=== PATIENT | female | born 1960 | race Caucasian/White ===

== ENCOUNTER 2022-02-15 09:16 | Outpatient (CLI) | payer OTHER, SELFPAY | END 2022-02-15 09:17 | disposition home or self-care (01) | LOC: RAD 09:18 → INJ CL 09:23 | PROVIDERS: PCP Physician Assistant Medical; Visit Provider Family Medicine | DX: M54.16 Radiculopathy, lumbar region (principal); M51.26 Other intervertebral disc displacement, lumbar region | CPT/HCPCS: 62323; Q9966 ==

== ENCOUNTER 2022-06-19 11:23 | Outpatient (CLI) | payer OTHER, SELFPAY ==
[2022-06-19] MEDS: TETRACAINE 0.5% OPHTH 1 DROP EYE-BOTH ×3 (11:32→12:04)
[2022-06-19] MEDS: BRIMONIDINE TARTRATE 0.2% OPHTH 1 DROP EYE-BOTH ×2 (11:32→12:20)
[2022-06-19 11:36] VITALS: BP 137/84; PULSE 57; RESP 16; TEMP 35.9; O2SAT 95
--- NOTE | 2022-06-19 13:45 | W.PM.OPTPROC ---
Procedure Note Date of procedure: 06/19/22 Will [facility] bill your pro fee for this procedure?: Yes Procedure Description: SURGEON: Camila Guthrie MD PREOPERATIVE DIAGNOSIS: Posterior capsular opacity, right and left eye POSTOPERATIVE DIAGNOSIS: Posterior capsular opacity, right and left eye PROCEDURE: YAG laser capsulotomy, both eyes ANESTHESIA: Topical. ESTIMATED BLOOD LOSS: None PATHOLOGY SPECIMEN: None COMPLICATIONS: None INDICATIONS: See consult note for details. The risks, benefits and alternatives of the procedure were explained to the patient, who elected to proceed and signed informed consent to do so. PROCEDURE: The patient was brought to the pre-holding area where the right and left eyes were identified as the operative eyes. I placed my initials above the eyes. The following was given in both eyes: The patient received 2 sets of 1 drop of 0.5% tetracaine and 1 drop of 1% tropicamide. They also received 1 drop of 0.2% brimonidine. They received 1 drop of 0.5% tetracaine immediately prior to bringing them back for the procedure. The patient was then brought to the procedure room where the right and left eyes were again identified as the operative eyes. A YAG Ihsan capsulotomy lens was placed on the right eye. The laser was administered using a total number of 17 shots with an energy of 2.4 mJ per shot for a total energy of 41 mJ. The patient tolerated the procedure well. A YAG Ihsan capsulotomy lens was placed on the left eye. The laser was administered using a total number of 45 shots with an energy of 2.4 mJ per shot for a total energy of 108 mJ. The patient tolerated the procedure well. DISPOSITION: The patient was taken back to the pre-holding area and given 1 drop of 0.2% brimonidine in both eyes. They were discharged to home in stable condition. The patient was instructed to call me or go to the emergency department with any sudden change, including dramatic loss of vision, severe pain in the eye or eyebrow region, nausea, or vomiting. The patient was instructed to use the 0.2% brimonidine 1 drop 2 times a day in both eyes for 1 week. The patient will follow up in the clinic in 1-2 weeks.
== END 2022-06-19 12:22 | disposition home or self-care (01) ==
LOC: EYE PRC 11:25
PROVIDERS: PCP Physician Assistant Medical; Visit Provider Ophthalmology
DX: H26.9 Unspecified cataract (principal)
CPT/HCPCS: 66821; A9270

== ENCOUNTER 2023-01-21 08:19 | Outpatient (CLI) | payer OTHER, SELFPAY | END 2023-01-21 08:20 | disposition home or self-care (01) | LOC: INJ CL 08:20 | PROVIDERS: PCP Physician Assistant Medical; Visit Provider Family Medicine | DX: M51.36 Other intervertebral disc degeneration, lumbar region (principal); M54.16 Radiculopathy, lumbar region | CPT/HCPCS: 62323; J0702; Q9966 ==

== ENCOUNTER 2023-08-06 14:12 | Emergency (ER) | payer OTHER, SELFPAY ==
[2023-08-06] VITALS (10 sets, daily range): BP systolic 129–141; BP diastolic 69–84; PULSE 49–61; RESP 16–20; TEMP 36.5; O2SAT 94–98; BMI 29.1
--- NOTE | 2023-08-06 14:24 | CRLHL7_ITS ---
For Patients: As a result of the Century Cures Act, medical imaging exams and procedure reports are released immediately into your electronic medical record. You may view this report before your referring provider. If you have questions, please contact your health care provider. Indication: Chest pain. Technique: One view(s) of the chest. Comparison: None available. Findings: Normal cardiomediastinal silhouette and pulmonary vasculature. Lungs are well inflated and clear. No focal consolidation, pleural effusion or pneumothorax. No acute osseous abnormality. Impression: No acute cardiopulmonary abnormality identified. Dictated by Nellie Gallegos MD @ 08/06/2023 2:49:18 PM (Electronically Signed)
--- NOTE | 2023-08-06 14:28 | ED_ITS ---
HPI - General Adult General Chief complaint: Chest Pain Stated complaint: Chest pain Time Seen by Provider: 08/06/23 14:14 History of Present Illness HPI narrative: The patient is a 63 year white female who was arguing with her this morning and had significant left-sided chest pain. She reported shortness of breath diaphoresis she felt panicky. She has had a history of lorazepam use for panic attacks in the past. She has not had any heart history although she does have chronic atrial fibrillation and she is on Coumadin. She has not had any myocardial infarctions or obstructive disease. She took a lorazepam this morning after she felt panicky, and it seemed to help, although she still has a little ?stitch in her left upper chest that she points to with a single finger. She has not had any shortness of breath now no breathing problem no diaphoresis no nausea. She has had no leg swelling or edema history of bleeding or clotting problems. She is on Coumadin as mentioned. She had a history of breast cancer. That was remote. She is nondiabetic, does not smoke. Her mother had open- heart surgery for what sounds like a valvular issue. Related Data Allergies Allergy/AdvReac Type Severity Reaction Status Date / Time No Known Allergies Allergy Verified 08/06/23 14:30 Review of Systems Status of ROS: Reports: 6 or more systems reviewed and unremarkable except as noted in History and below [facility] Medical History Migraine ?G43.909 - Migraine, unspecified, not intractable, without status migrainosus (ICD-10) Depression ?F32.A - Depression, unspecified (ICD-10) Anxiety ?F41.9 - Anxiety disorder, unspecified (ICD-10) Hypothyroidism ?E03.9 - Hypothyroidism, unspecified (ICD-10) Hypertension ?I10 - Essential (primary) hypertension (ICD-10) Atrial fibrillation ?I48.91 - Unspecified atrial fibrillation (ICD-10) Social History Smoking Status: Never smoker Do you use any of these nicotine containing products: None Second hand tobacco smoke exposure: No How often do you have a drink containing alcohol: never AUDIT-C Alcohol total score: 0 Non-prescribed substance use: denies use service: No Exam Narrative: Exam Narrative: Objective: The patient's heart rate is in the normal range of 80-90, O2 sat is normal Alert orient x3 no distress Neck is supple Chest clear Heart rhythm irregular regular 2/6 systolic ejection murmur Abdomen benign soft nontender no masses no peritonitis Extremities are no edema Neurologic nonfocal good peripheral perfusion noted, skin periphery is warm and dry. Const: Vital Signs, click to edit/add: Vital Signs - 24 hr 08/06/23 14:22 08/06/23 14:23 08/06/23 14:23 Temperature Pulse Rate 49 L 60 Pulse Rate [Bilate ral] Respiratory Rate Blood Pressure 140/84 H Blood Pressure [Ri ght Upper Arm] Pulse Oximetry 97 98 97 Oxygen Delivery Me thod 08/06/23 14:27 08/06/23 14:44 08/06/23 14:49 Temperature 97.7 F Pulse Rate 57 L Pulse Rate [Bilate ral] 61 Respiratory Rate 20 Blood Pressure 141/69 H Blood Pressure [Ri ght Upper Arm] 140/84 H Pulse Oximetry 97 96 Oxygen Delivery Me thod Room Air 08/06/23 15:00 08/06/23 15:03 08/06/23 15:04 Temperature Pulse Rate 56 L 55 L 56 L Pulse Rate [Bilate ral] Respiratory Rate 16 Blood Pressure 140/82 H Blood Pressure [Ri ght Upper Arm] Pulse Oximetry 96 94 94 Oxygen Delivery Me thod 08/06/23 15:14 08/06/23 15:15 Temperature Pulse Rate 56 L 56 L Pulse Rate [Bilate ral] Respiratory Rate 16 Blood Pressure 129/82 Blood Pressure [Ri ght Upper Arm] Pulse Oximetry 97 97 Oxygen Delivery Me thod Course Vital Signs Vital signs: Initial Vital Signs Pulse Rate 49 L 08/06/23 14:22 Blood Pressure 140/84 H 08/06/23 14:22 Blood Pressure Mean 102 08/06/23 14:22 Pulse Oximetry 97 08/06/23 14:22 Vital Signs Pulse Rate 49 L 08/06/23 14:22 Blood Pressure 140/84 H 08/06/23 14:22 Pulse Oximetry 97 08/06/23 14:22 Temperature 97.7 F 08/06/23 14:27 Pulse Rate 56 L 08/06/23 15:15 Respiratory Rate 16 08/06/23 15:14 Blood Pressure 129/82 08/06/23 15:14 Pulse Oximetry 97 08/06/23 15:15 Oxygen Delivery Method Room Air 08/06/23 14:27 Medications Administered Medications: Discontinued Medications Generic Name Dose Route Start Last Admin Trade Name Jewell PRN Reason Stop Dose Admin Aspirin 324 mg 08/06/23 14:23 08/06/23 14:44 Aspirin 81 Mg Tab.Chew PO 08/06/23 14:24 324 mg ONCE ONE Administration Medical Decision Making MDM Narrative Medical decision making narrative: 63-year-old female with what sounds like a panic attack with left chest wall pain, markedly improved now with stress this morning. She had symptoms of a panic attack including diaphoresis, chest pain, shortness of breath, panic feeling. This has resolved with her Ativan. She still has a little bit a point discomfort in her left upper lateral chest. This does not sound cardiac. Sounds more chest wall in nature. I think it be important over to check cardiac rhythm, EKG, troponin, lab studies. Will give her aspirin 324 chewable. Check her INR. Patient's EKG was done in emergency department showed by my read sinus rhythm occasional PVC nonspecific ST changes but no obvious ischemic change. Patient's labs and chest x-ray pending. I do not think at this point she needs additional Ativan as she seems to be doing very well. Addendum 3:25 p.m.: Patient's chest x-ray by my read is unremarkable, her INR is 2, her labs look reassuring., troponin is negative. She be discharged to home. Ativan as needed. I suspect she had a panic type spell today. Recheck with regular doctor over the next week to 2 weeks. Return sooner problems concerns the ER. Lab Data Labs: Lab Results 08/06/23 08/06/23 Range/Units 14:24 14:36 WBC 7.33 (4.50-11.00) K/uL RBC 4.18 (4.00-5.20) m/uL Hgb 12.8 (12.0-16.0) gm/dL Hct 37.7 (33.0-51.0) % MCV 90 (80-100) fL MCH 31 (26-34) pg MCHC 34 (32-36) gm/dL RDW Coeff of Shantal 11.9 (11.5-15.5) % Plt Count 328 (140-440) K/uL Neut % (Auto) 65.0 (42.0-72.0) % Lymph % (Auto) 24.7 (20-44) % Labette % (Auto) 8.2 (0.0-11.0) % Eos % (Auto) 1.4 (0.0-7.0) % Baso % (Auto) 0.4 (0.0-3.0) % Neut # (Auto) 4.77 (1.7-7.0) K/uL Lymph # (Auto) 1.81 (0.90-2.90) K/uL Labette # (Auto) 0.60 (0.00-0.90) K/UL Eos # (Auto) 0.10 (0.00-0.50) K/uL Baso # (Auto) 0.03 (0.00-0.30) K/uL Abs Immat Gran (auto) 0.02 (0.00-0.30) K/uL Imm/Tot Granulo (auto) 0.3 % INR 1.99 H (0.91-1.10) Sodium 135 (135-149) mmol/L Potassium 3.5 L (3.6-5.1) mmol/L Chloride 103 (96-114) mmol/L Carbon Dioxide 24 (20-32) mmol/L Anion Gap 8 (7-15) mEq/L BUN 13 (7-30) mg/dL Creatinine 0.5 (0.5-1.5) mg/dL Estimated Creat Clear 52.49 Estimated GFR 106 ml/min Glucose 107 (60-115) mg/dL Calcium 9.4 (8.4-10.6) mg/dL Total Bilirubin 0.6 (0.1-1.5) mg/dL Direct Bilirubin 0.4 (0.0-0.5) mg/dL AST 29 (12-35) U/L ALT 21 (4-35) U/L Alkaline Phosphatase 71 (40-150) U/L C-Reactive Protein < 0.5 L (0.5-1.0) mg/dL Total Protein 7.4 (6.0-8.3) g/dL Albumin 4.6 (3.3-5.0) g/dL POC Troponin I 0.00 L (0.01-0.04) ng/ml Discharge Plan Discharge Clinical Impression: Chest pain, Panic attack Patient Disposition: Home w/ Parent or Adult Condition: Stable Additional Instructions: Recommend continue home medications, can use Ativan as needed, follow-up with primary care in the next few days if problems or concerns and probably good idea to get a recheck in the next week. Return to ED as needed. Activity Level: No Restrictions Discharge Diet: Regular Follow Up/Referrals: Jeanine Bartholomew PA-C [Primary Care Provider] - Stand Alone Forms: [employer] Info Instructions
[2023-08-06 14:40] LABS: Basophils Absolute Auto 0.03 K/uL (0.00-0.30); Basophils Percent Auto 0.4 % (0.0-3.0); Eosinophils Percent Auto 1.4 % (0.0-7.0); Hematocrit 37.7 % (33.0-51.0); Hemoglobin* 12.8 gm/dL (12.0-16.0); Immature Granulocytes Abs Auto 0.02 K/uL (0.00-0.30); Immature Granulocytes Pct Auto 0.3 %; Lymphocytes Absolute Auto 1.81 K/uL (0.90-2.90); Lymphocytes Percent Auto 24.7 % (20-44); Mean Corpuscular HGB Conc 34 gm/dL (32-36); Mean Corpuscular Hemoglobin 31 pg (26-34); Mean Corpuscular Volume 90 fL (80-100); Monocytes Percent Auto 8.2 % (0.0-11.0); Neutrophils Absolute Auto 4.77 K/uL (1.7-7.0); Platelet Count* 328 K/uL (140-440); RDW Coefficient of Variation % 11.9 % (11.5-15.5); Red Blood Count 4.18 m/uL (4.00-5.20); White Blood Count* 7.33 K/uL (4.50-11.00)
[2023-08-06 14:43] LABS: Slide Review Reflex No
[2023-08-06] MEDS: ASPIRIN 81 MG TAB.CHEW 324 MG PO (14:44)
[2023-08-06 14:53] LABS: Chloride* 103 mmol/L (96-114)
[2023-08-06 14:54] LABS: Albumin* 4.6 g/dL (3.3-5.0); Sodium* 135 mmol/L (135-149)
[2023-08-06 14:55] LABS: Potassium* 3.5 mmol/L (3.6-5.1)
[2023-08-06 14:56] LABS: Creatinine* 0.5 mg/dL (0.5-1.5); Est. Creatinine Clearance* 52.49; Estimated Glomerular Filt Rate 106 ml/min
[2023-08-06 14:57] LABS: Alanine Aminotransferase* 21 U/L (4-35); Alkaline Phosphatase* 71 U/L (40-150); Anion Gap 8 mEq/L (7-15); Aspartate Amino Transferase* 29 U/L (12-35); Bilirubin Direct* 0.4 mg/dL (0.0-0.5); Bilirubin Total* 0.6 mg/dL (0.1-1.5); Blood Urea Nitrogen* 13 mg/dL (7-30); Carbon Dioxide* 24 mmol/L (20-32); Glucose* 107 mg/dL (60-115); Total Protein* 7.4 g/dL (6.0-8.3)
[2023-08-06 14:58] LABS: Calcium* 9.4 mg/dL (8.4-10.6)
[2023-08-06 15:00] LABS: C Reactive Protein* < 0.5 mg/dL (0.5-1.0)
[2023-08-06 15:15] LABS: INR 1.99 (0.91-1.10)
== END 2023-08-06 15:42 | disposition home or self-care (01) ==
LOC: ED 14:58
PROVIDERS: Emergency Provider Family Medicine; PCP Physician Assistant Medical
DX: R07.9 Chest pain, unspecified (principal); F41.0 Panic disorder [episodic paroxysmal anxiety]
CPT/HCPCS: 36415; 71045; 80048; 80076; 84484; 85025; 85610; 86140; 93005; 94761; 99284; 99285; A9270

== ENCOUNTER 2024-02-10 07:58 | Outpatient (CLI) | payer OTHER, SELFPAY | END 2024-02-10 07:59 | disposition home or self-care (01) | LOC: INJ CL 07:59 | PROVIDERS: PCP Physician Assistant Medical; Visit Provider Family Medicine | DX: M54.16 Radiculopathy, lumbar region (principal); M51.369 Other intervertebral disc degeneration, lumbar region without mention of lumbar back pain or lower extremity pain | CPT/HCPCS: 62323; Q9966 ==